=== PATIENT | female | born 1945 | race African-American/Black ===

== ENCOUNTER 2018-10-04 20:32 | Inpatient (IN) | payer OTHER ==
[~2018-10-04] VITALS: Ht 170.2 cm; Wt 65.6 kg
[2018-10-04 20:40] VITALS: Ht 170.2 cm; Wt 65.6 kg
[2018-10-04 21:26] LABS: BASOPHIL % 0.5 % (0-2); PLATELET COUNT 236 x10^3mcL (130-400); RED CELL DISTRIBUTION WIDTH 14.1 % (11.5-14.5)
[2018-10-04 21:44] LABS: CALCIUM 9.3 mg/dL (8.5-10.1); CARBON DIOXIDE 22.4 mmol/L (21-32); CHLORIDE SERUM 102 mmol/L (98-107); CREATININE SERUM 1.3 mg/dL (0.6-1.0); GLUCOSE SERUM 163 mg/dL (74-106); POTASSIUM SERUM 4.1 mmol/L (3.5-5.1); SODIUM SERUM 136 mmol/L (136-145)
[2018-10-04 21:49] LABS: ALBUMIN 2.5 g/dL (3.4-5.0); ALKALINE PHOSPHATASE 170 U/L (46-116); ALT/SGPT 29 U/L (14-59); AST/SGOT 29 U/L (15-37); BILIRUBIN TOTAL 0.6 mg/dL (0.20-1.00); TOTAL PROTEIN, SERUM 7.5 g/dL (6.4-8.2)
[2018-10-05] VITALS (7 sets, daily range): BP systolic 130–163; BP diastolic 81–120
[2018-10-05] MEDS ORDERED: CLONIDINE HCL0.2 MG PO (00:20)
[2018-10-05] MEDS ORDERED: ATENOLOL50 MG PO (00:20)
[2018-10-05] MEDS ORDERED: LISINOPRIL20 MG PO (00:20)
[2018-10-05] MEDS ORDERED: COUMADIN5 MG PO (00:20)
[2018-10-05 01:24] LABS: microscopic required? YES; urine erythrocyte NEGATIVE (NEGATIVE)
[2018-10-05 06:45] LABS: BASOPHIL % 0.1 % (0-2); PLATELET COUNT 198 x10^3mcL (130-400); RED CELL DISTRIBUTION WIDTH 13.8 % (11.5-14.5)
[2018-10-05 07:09] LABS: CALCIUM 8.9 mg/dL (8.5-10.1); CARBON DIOXIDE 25.7 mmol/L (21-32); CHLORIDE SERUM 102 mmol/L (98-107); CREATININE SERUM 1.2 mg/dL (0.6-1.0); GLUCOSE SERUM 135 mg/dL (74-106); POTASSIUM SERUM 4.1 mmol/L (3.5-5.1); SODIUM SERUM 137 mmol/L (136-145)
[2018-10-06 04:48] VITALS: BP 139/90
[2018-10-06 06:04] LABS: BASOPHIL % 0.3 % (0-2); PLATELET COUNT 219 x10^3mcL (130-400); RED CELL DISTRIBUTION WIDTH 13.7 % (11.5-14.5)
[2018-10-06 06:55] LABS: CALCIUM 9.9 mg/dL (8.5-10.1); CARBON DIOXIDE 24.9 mmol/L (21-32); CHLORIDE SERUM 101 mmol/L (98-107); CREATININE SERUM 1.2 mg/dL (0.6-1.0); GLUCOSE SERUM 102 mg/dL (74-106); MAGNESIUM 2.1 mg/dL (1.8-2.4); PHOSPHOROUS 3.6 mg/dL (2.5-4.9); POTASSIUM SERUM 5.2 mmol/L (3.5-5.1); SODIUM SERUM 135 mmol/L (136-145)
[2018-10-06 08:40] VITALS: BP 154/79
[2018-10-06 17:07] VITALS: BP 148/109
[2018-10-06 21:13] VITALS: BP 149/95
[2018-10-07 05:47] VITALS: BP 147/78
[2018-10-07 06:30] LABS: BASOPHIL % 0.1 % (0-2); PLATELET COUNT 265 x10^3mcL (130-400); RED CELL DISTRIBUTION WIDTH 13.6 % (11.5-14.5)
[2018-10-07 07:00] LABS: CALCIUM 9.2 mg/dL (8.5-10.1); CARBON DIOXIDE 22.4 mmol/L (21-32); CHLORIDE SERUM 101 mmol/L (98-107); CREATININE SERUM 1.2 mg/dL (0.6-1.0); GLUCOSE SERUM 105 mg/dL (74-106); MAGNESIUM 1.8 mg/dL (1.8-2.4); PHOSPHOROUS 2.8 mg/dL (2.5-4.9); POTASSIUM SERUM 4.9 mmol/L (3.5-5.1); SODIUM SERUM 134 mmol/L (136-145)
[2018-10-07 09:30] VITALS: BP 151/96
[2018-10-07 11:05] VITALS: BP 149/102
[2018-10-07 16:35] VITALS: BP 140/89
[2018-10-07 21:42] VITALS: BP 140/87
[2018-10-08 06:31] VITALS: BP 167/100
[2018-10-08 07:20] LABS: BASOPHIL % 0.4 % (0-2); PLATELET COUNT 282 x10^3mcL (130-400); RED CELL DISTRIBUTION WIDTH 13.7 % (11.5-14.5)
[2018-10-08 07:28] LABS: CALCIUM 9.2 mg/dL (8.5-10.1); CARBON DIOXIDE 20.8 mmol/L (21-32); CHLORIDE SERUM 103 mmol/L (98-107); CREATININE SERUM 1.1 mg/dL (0.6-1.0); GLUCOSE SERUM 102 mg/dL (74-106); POTASSIUM SERUM 3.8 mmol/L (3.5-5.1); SODIUM SERUM 131 mmol/L (136-145)
[2018-10-08 10:15] VITALS: BP 151/86
[2018-10-08] MEDS ORDERED: LEVAQUIN750 MG PO (13:34)
[2018-10-08 14:46] VITALS: BP 164/100
[2018-10-08 15:08] VITALS: BP 164/100
== END 2018-10-08 16:19 | disposition home or self-care (01) | DRG 871 ==
LOC: ED 20:32 → MU 10-05 00:04
PROVIDERS: Emergency Medicine; ADMIT Internal Medicine
PROC: 0D9P3ZZ Drainage of Rectum, Percutaneous Approach (ICD-10-PCS; principal; 2018-10-05)
DX: A41.9 Sepsis, unspecified organism (principal); N17.0 Acute kidney failure with tubular necrosis; E43 Unspecified severe protein-calorie malnutrition; K61.1 Rectal abscess; L03.317 Cellulitis of buttock; D68.69 Other thrombophilia; I48.91 Unspecified atrial fibrillation; R74.0 Nonspecific elevation of levels of transaminase and lactic acid dehydrogenase [LDH]; I16.0 Hypertensive urgency; R80.9 Proteinuria, unspecified; R73.03 Prediabetes; Z68.22 Body mass index [BMI] 22.0-22.9, adult; Z87.891 Personal history of nicotine dependence; Z79.01 Long term (current) use of anticoagulants
CPT/HCPCS: J1885; J1956; J2001; J2270; J2405; J2543; J3490; J7030; J7620; J7626; Q9967

== ENCOUNTER 2019-05-07 11:04 | Emergency (ER) | payer OTHER ==
[~2019-05-07] VITALS: Ht 170.2 cm; Wt 67.1 kg
[~2019-05-07 11:04] MED LIST: ATENOLOL50 MG PO; CLONIDINE HCL0.2 MG PO; COUMADIN5 MG PO; LEVAQUIN750 MG PO; LISINOPRIL20 MG PO
[2019-05-07 11:26] VITALS: Ht 170.2 cm; Wt 67.1 kg
[2019-05-07 12:30] VITALS: BP 146/86
== END 2019-05-07 12:30 | disposition home or self-care (01) ==
LOC: ED 11:04
DX: K61.1 Rectal abscess (principal)

== ENCOUNTER 2020-06-08 10:04 | Emergency (ER) | payer OTHER ==
[~2020-06-08] VITALS: Ht 170.2 cm; Wt 65.8 kg
[2020-06-08 10:14] VITALS: Ht 170.2 cm; Wt 65.8 kg
[2020-06-08 11:48] LABS: BASOPHIL % 0.7 % (0.2-1.3); PLATELET COUNT 169 x10^3mcL (179-408); RED CELL DISTRIBUTION WIDTH 13.5 % (12.3-17.7)
[2020-06-08 11:53] LABS: CALCIUM 9.8 mg/dL (8.5-10.1); CHLORIDE SERUM 102 mmol/L (98-107); CREATININE SERUM 1.4 mg/dL (0.6-1.0); GLUCOSE SERUM 118 mg/dL (74-106); POTASSIUM SERUM 3.8 mmol/L (3.5-5.1); SODIUM SERUM 137 mmol/L (136-145)
[2020-06-08 12:03] LABS: ALBUMIN 3.7 g/dL (3.4-5.0); ALKALINE PHOSPHATASE 98 U/L (46-116); ALT/SGPT 28 U/L (14-59); AST/SGOT 10 U/L (15-37); BILIRUBIN TOTAL 0.34 mg/dL (0.20-1.00); CHOLESTEROL 176 mg/dL (<200); LIPASE 67 IU/L (73-393); TOTAL PROTEIN, SERUM 7.5 g/dL (6.4-8.2); TRIGLYCERIDES 55 mg/dL (<150)
[2020-06-08 12:10] LABS: FREE T4 1.15 ng/dL (0.76-1.46); FREE THYROXINE INDEX 2.6 ug/dL (1.4-4.5); T4(THYROXINE) 7.5 ug/dL (4.7-13.3)
[2020-06-08 12:22] LABS: T3 TOTAL 0.64 ng/mL
[2020-06-08 12:46] LABS: CHOLESTEROL/HDL RATIO 2.2; HDL CHOLESTEROL 79 mg/dL (40-60)
[2020-06-08 13:17] LABS: microscopic required? YES; urine erythrocyte NEGATIVE (NEGATIVE)
[2020-06-08] MEDS ORDERED: MACROBID100 MG PO (14:18)
[2020-06-08] MEDS ORDERED: POTASSIUM CHLO20 ME4 PO (14:18)
[2020-06-08] MEDS ORDERED: LASIX20 MG PO (14:18)
[2020-06-08 15:00] VITALS: BP 136/82
== END 2020-06-08 14:30 | disposition home or self-care (01) ==
LOC: ED 10:04
PROVIDERS: Specialist
DX: R06.02 Shortness of breath (principal)
CPT/HCPCS: 36600; 83880; 84439